=== PATIENT | male | born 1985 | race Caucasian/White ===

== ENCOUNTER → 2016-11-27 | Outpatient (CLI) | payer OTHER ==
[2016-11-27 12:02] LABS: Basophils # (auto) 0 uL; Basophils % (auto) 0.4 % (0.0-2.0); Eosinophils # (auto) 0.3 uL; Hematocrit 46.9 % (41.0-53.0); Hemoglobin 16.2 g/dL (13.5-17.5); Lymphocytes # (auto) 1.9 uL; Lymphocytes % (auto) 35.9 % (10.0-50.0); Mean Corpuscular Hemoglobin 32.9 pg (28.0-32.0); Mean Corpuscular Hgb Conc. 34.5 g/dL (32.0-36.0); Mean Corpuscular Volume 95.2 fL (80.0-100.0); Mean Platelet Volume 9.8 fL (7.4-10.4); Monocytes # (auto) 0.4 uL; Monocytes % (auto) 8.2 % (0.0-12.0); Neutrophils # (auto) 2.7 uL; Neutrophils % (auto) 50.5 % (37.0-80.0); Platelet Count (auto) 253 10^3/uL (140-450); Red Cell Distribution Width 12.9 % (11.6-16.0); White Blood Cell 5.3 10^3/uL (4.4-10.8)
[2016-11-27 12:19] LABS: Albumin 4.3 g/dL (3.4-5.0); BUN/Creatinine Ratio 9.7; Potassium 4.1 mmol/L (3.5-5.1)
[2016-11-27 12:22] LABS: Bilirubin, Total 0.9 mg/dL (0.2-1.0); Total Protein 7.8 g/dL (6.4-8.2)
== END | disposition home or self-care (01) ==
LOC: LAB 11:26
PROVIDERS: ATTEND Preventive Medicine Preventive Medicine/Occupational Environmental Medicine
DX: I10 Essential (primary) hypertension (principal)
CPT/HCPCS: 36415; 80053; 85025